=== PATIENT | male | born 1965 | race Caucasian/White ===

== ENCOUNTER 2017-04-21 18:58 | Emergency (ER) | payer BC ==
[~2017-04-21] VITALS: Ht 182.9 cm; Wt 106.6 kg
[~2017-04-21 18:58] MED LIST: AMOX500 PO; CLIN300 PO; HYDACE5 PO
[2017-04-21] MEDS ORDERED: Bactrim Ds Tab1 EACH PO (22:50)
== END 2017-04-21 22:55 | disposition home or self-care (01) ==
LOC: ER 18:58
DX: S62.522B Displaced fracture of distal phalanx of left thumb, initial encounter for open fracture (principal); S61.012A Laceration without foreign body of left thumb without damage to nail, initial encounter; W27.0XXA Contact with workbench tool, initial encounter
CPT/HCPCS: 12032; 73140; 96365; 96374; 99283; J0690

== ENCOUNTER 2017-05-01 07:07 | Emergency (ER) | payer BC ==
[~2017-05-01] VITALS: Ht 182.9 cm; Wt 104.3 kg
[~2017-05-01 07:07] MED LIST changes: +Bactrim Ds Tab1 EACH PO
== END 2017-05-01 09:45 | disposition home or self-care (01) ==
LOC: ER 07:07
DX: S61.012D Laceration without foreign body of left thumb without damage to nail, subsequent encounter (principal); Z79.2 Long term (current) use of antibiotics; Z86.14 Personal history of Methicillin resistant Staphylococcus aureus infection; X58.XXXD Exposure to other specified factors, subsequent encounter; Y93.89 Activity, other specified
CPT/HCPCS: 29125; 99283